=== PATIENT | female | born 2000 | race Caucasian/White ===

== ENCOUNTER → 2020-11-04 13:58 | Outpatient (BNVA) | payer MEDICAID, SELFPAY | PROVIDERS: Visit Provider Nurse Practitioner Women's Health | DX: Z34.01 Encounter for supervision of normal first pregnancy, first trimester (principal) | CPT/HCPCS: 81000 ==

== ENCOUNTER → 2020-11-25 12:33 | Outpatient (BNVA) | payer MEDICAID, SELFPAY | PROVIDERS: Visit Provider Obstetrics & Gynecology | DX: O99.331 Smoking (tobacco) complicating pregnancy, first trimester; F17.210 Nicotine dependence, cigarettes, uncomplicated; O99.321 Drug use complicating pregnancy, first trimester; F12.920 Cannabis use, unspecified with intoxication, uncomplicated; Z3A.11 11 weeks gestation of pregnancy | CPT/HCPCS: 80307; 81000; 85027; 86592; 86762; 86803; 86850; 86900; 87086; 87340; 87806 ==

== ENCOUNTER → 2021-01-04 08:50 | Outpatient (BNVA) | payer MEDICAID, SELFPAY | PROVIDERS: Visit Provider Nurse Practitioner Women's Health | DX: O99.321 Drug use complicating pregnancy, first trimester (principal); R76.8 Other specified abnormal immunological findings in serum; O99.331 Smoking (tobacco) complicating pregnancy, first trimester | CPT/HCPCS: 81000; 87522 ==

== ENCOUNTER → 2021-01-24 09:08 | Outpatient (BNVA) | payer MEDICAID, SELFPAY | PROVIDERS: Visit Provider Obstetrics & Gynecology | DX: Z34.92 Encounter for supervision of normal pregnancy, unspecified, second trimester (principal) | CPT/HCPCS: 76805 ==

== ENCOUNTER → 2021-01-27 11:08 | Outpatient (BNVA) | payer MEDICAID, SELFPAY | PROVIDERS: Visit Provider Obstetrics & Gynecology | DX: O99.322 Drug use complicating pregnancy, second trimester (principal); O28.3 Abnormal ultrasonic finding on antenatal screening of mother; F12.90 Cannabis use, unspecified, uncomplicated; O99.332 Smoking (tobacco) complicating pregnancy, second trimester; F17.210 Nicotine dependence, cigarettes, uncomplicated; Z3A.20 20 weeks gestation of pregnancy | CPT/HCPCS: 81000 ==

== ENCOUNTER → 2021-02-21 14:03 | Outpatient (BNVA) | payer MEDICAID, SELFPAY | PROVIDERS: Visit Provider Obstetrics & Gynecology | DX: O28.3 Abnormal ultrasonic finding on antenatal screening of mother (principal) | CPT/HCPCS: 81000 ==

== ENCOUNTER → 2021-03-21 11:25 | Outpatient (BNVA) | payer MEDICAID, SELFPAY | PROVIDERS: Visit Provider Obstetrics & Gynecology | DX: O28.3 Abnormal ultrasonic finding on antenatal screening of mother (principal) | CPT/HCPCS: 81000; 82950; 85027 ==

== ENCOUNTER → 2021-04-04 09:30 | Outpatient (BNVA) | payer MEDICAID, SELFPAY | PROVIDERS: Visit Provider Obstetrics & Gynecology | DX: Z34.80 Encounter for supervision of other normal pregnancy, unspecified trimester (principal) | CPT/HCPCS: 81000 ==

== ENCOUNTER → 2021-04-18 08:17 | Outpatient (BNVA) | payer MEDICAID, SELFPAY | PROVIDERS: Visit Provider Obstetrics & Gynecology | DX: Z34.80 Encounter for supervision of other normal pregnancy, unspecified trimester (principal) | CPT/HCPCS: 81000 ==

== ENCOUNTER → 2021-05-02 10:28 | Outpatient (BNVA) | payer MEDICAID, SELFPAY | PROVIDERS: Visit Provider Obstetrics & Gynecology | DX: O09.893 Supervision of other high risk pregnancies, third trimester (principal) | CPT/HCPCS: 81000 ==

== ENCOUNTER → 2021-05-16 08:54 | Outpatient (BNVA) | payer MEDICAID, SELFPAY | PROVIDERS: Visit Provider Obstetrics & Gynecology | DX: O09.893 Supervision of other high risk pregnancies, third trimester (principal) | CPT/HCPCS: 81000; 87081 ==

== ENCOUNTER → 2021-05-23 08:44 | Outpatient (BNVA) | payer MEDICAID, SELFPAY | PROVIDERS: Visit Provider Obstetrics & Gynecology | DX: O09.893 Supervision of other high risk pregnancies, third trimester (principal) | CPT/HCPCS: 81000 ==

== ENCOUNTER → 2021-05-31 09:15 | Outpatient (BNVA) | payer MEDICAID, SELFPAY | PROVIDERS: Visit Provider Obstetrics & Gynecology | DX: O09.893 Supervision of other high risk pregnancies, third trimester (principal); Z3A.00 Weeks of gestation of pregnancy not specified | CPT/HCPCS: 81000 ==

== ENCOUNTER 2021-06-06 11:05 | Outpatient (CLI) | payer MEDICAID, SELFPAY ==
[2021-06-06 11:19] VITALS: BMI 29.2
[2021-06-06 11:24] VITALS: TEMP 37.1
[2021-06-06 11:25] VITALS: BP 125/75; PULSE 94
[2021-06-06 11:27] VITALS: RESP 16
== END 2021-06-06 13:37 | disposition home or self-care (01) ==
LOC: OPOB 11:10 → OBGYN 11:18
PROVIDERS: Visit Provider Obstetrics & Gynecology
DX: O26.899 Other specified pregnancy related conditions, unspecified trimester (principal); Z3A.00 Weeks of gestation of pregnancy not specified; R10.9 Unspecified abdominal pain
CPT/HCPCS: 59020; 81000; 87635; 99211

== ENCOUNTER → 2021-06-13 09:54 | Outpatient (BNVA) | payer MEDICAID, SELFPAY | PROVIDERS: Visit Provider Obstetrics & Gynecology | DX: O09.893 Supervision of other high risk pregnancies, third trimester (principal); Z20.822 Contact with and (suspected) exposure to COVID-19 | CPT/HCPCS: 81000; 87635 ==

== ENCOUNTER 2021-06-14 07:58 | Outpatient (CLI) | payer MEDICAID, SELFPAY ==
[2021-06-14 08:27] VITALS: BP 114/61; PULSE 80; TEMP 36.3
--- NOTE | 2021-06-14 08:29 | P.PCN_ITS ---
Procedure/Consent Procedure Narrative: NONSTRESS TEST: Place of test: [facility] – [place]-L&D Indication: 20-year-old 1 para 0 at 40 weeks and 3 days, abdominal pain/contractions, possible leaking of fluid Date and time of test: 06/14/2021 at 8:10 AM Baseline: 135 Variability: Moderate variability Accelerations: Accelerations present Decelerations: No decelerations Tocometry: Occasional contractions INTERPRETATION: NST reactive, continue kick counts
[2021-06-14 08:43] VITALS: BMI 29.0
[2021-06-14 08:58] VITALS: BP 107/57; PULSE 65
[2021-06-14 09:06] LABS: Nitrazine Paper, PH Negative
[2021-06-14 09:29] VITALS: BP 125/68; PULSE 79
[2021-06-14 09:57] VITALS: BP 108/57; PULSE 72
[2021-06-14 10:29] VITALS: BP 122/75; PULSE 91
== END 2021-06-14 10:40 | disposition home or self-care (01) ==
LOC: OPOB 08:04 → OBGYN 08:04
PROVIDERS: Visit Provider Obstetrics & Gynecology
DX: O26.893 Other specified pregnancy related conditions, third trimester (principal); Z3A.40 40 weeks gestation of pregnancy; R10.9 Unspecified abdominal pain; N89.8 Other specified noninflammatory disorders of vagina
CPT/HCPCS: 59025; 83986; 99211

== ENCOUNTER 2021-06-14 19:47 | Outpatient (CLI) | payer MEDICAID, SELFPAY ==
[2021-06-14 19:47] VITALS: BMI 43.9
[2021-06-14 19:57] VITALS: BP 115/65; PULSE 103; TEMP 36.7
[2021-06-14] MEDS: hyDROXYzine 25 mg Capsule 50 MG PO (20:32)
[2021-06-14 20:35] VITALS: BP 115/65; PULSE 103; RESP 16; TEMP 36.7
== END 2021-06-14 20:40 | disposition home or self-care (01) ==
LOC: OPOB 19:48 → OBGYN 19:49
PROVIDERS: Visit Provider Obstetrics & Gynecology
DX: O26.899 Other specified pregnancy related conditions, unspecified trimester (principal); Z3A.00 Weeks of gestation of pregnancy not specified; R10.9 Unspecified abdominal pain
CPT/HCPCS: 59025; 99211

== ENCOUNTER → 2022-09-26 14:00 | Outpatient (BNVA) | payer MEDICAID, SELFPAY | PROVIDERS: Visit Provider Nurse Practitioner Women's Health | DX: Z32.00 Encounter for pregnancy test, result unknown (principal); N92.6 Irregular menstruation, unspecified | CPT/HCPCS: 81025 ==

== ENCOUNTER → 2022-10-10 12:12 | Outpatient (BNVA) | payer MEDICAID, SELFPAY | PROVIDERS: Visit Provider Obstetrics & Gynecology | DX: Z36.87 Encounter for antenatal screening for uncertain dates (principal) | CPT/HCPCS: 76801 ==

== ENCOUNTER 2022-10-10 13:55 | Outpatient (CLI) | payer MEDICAID, SELFPAY | END 2022-10-10 13:56 | disposition home or self-care (01) | LOC: LAB 13:57 | PROVIDERS: Visit Provider Obstetrics & Gynecology | DX: Z34.90 Encounter for supervision of normal pregnancy, unspecified, unspecified trimester (principal) | CPT/HCPCS: 36415; 84702 ==

== ENCOUNTER 2022-10-18 11:25 | Outpatient (CLI) | payer MEDICAID, SELFPAY | END 2022-10-18 11:26 | disposition home or self-care (01) | LOC: LAB 11:29 | PROVIDERS: PCP Nurse Practitioner Family; Visit Provider Obstetrics & Gynecology | DX: O36.80X0 Pregnancy with inconclusive fetal viability, not applicable or unspecified (principal); Z3A.00 Weeks of gestation of pregnancy not specified | CPT/HCPCS: 76817; 84702 ==

== ENCOUNTER 2022-11-01 11:56 | Day surgery (SDC) | payer MEDICAID, SELFPAY ==
[2022-10-30 12:41] VITALS: BMI 19.1
[2022-11-01] VITALS (8 sets, daily range): BP systolic 99–129; BP diastolic 51–92; PULSE 75–116; RESP 16–129; TEMP 36.3–37; O2SAT 96–100
[2022-11-01 12:58] LABS: Basophils % 0.6 %; Eosinophils # 0.3 10^3/uL (0.0-0.8); Eosinophils % 4.8 %; Hematocrit 41.5 % (37.0-47.0); Hemoglobin 13.3 g/dL (11.5-15.3); Lymphocytes # 2.9 10^3/uL (0.8-4.8); Lymphocytes % 44.6 %; Mean Corpuscular Hemoglobin 28.4 pg (28.0-34.0); Mean Corpuscular Volume 88.5 fl (81-99); Mean Platelet Volume 10.5 fL (7.4-10.4); Monocytes # 0.4 10^3/uL (0.2-0.9); Monocytes % 5.5 %; Neutrophils # 2.89 10^3/uL (1.8-7.7); Neutrophils % 44.3 %; Nucleated Red Blood Cells % 0 %; Platelet Count 269 10^3/cmm (130-400); Red Blood Count 4.69 10^6/uL (4.1-5.3); Red Cell Distribution Width 14.1 % (12.1-15.1); White Blood Count 6.5 10^3/uL (4.0-10.0)
[2022-11-01 13:14] LABS: Anion Gap 14.1 (5-19); Blood Urea Nitrogen 5 mg/dL (6-20); Calcium 9.5 mg/dL (8.5-10.5); Carbon Dioxide 23 mmol/L (22-29); Chloride 105 mmol/L (98-107); Glomerular Filtration Rate 154.3 mL/min (90-130); Glucose 96 mg/dL (65-115); Osmolality Calculated 283 mOsm/kg (285-295); Potassium 4.1 mmol/L (3.5-5.1); Sodium 138 mmol/L (136-145)
[2022-11-01] MEDS: sodium chloride 0.9% 1,000 ML 30 ML IV (13:16)
[2022-11-01] MEDS: lactated ringers 500 ML IV (13:45)
--- NOTE | 2022-11-01 13:50 | ANES.PREANE2 ---
Pre-Anesthetic Assessment Height/Weight: Height 1.5 m Weight 43.091 kg Temp Pulse Resp BP Pulse Ox O2 Del Method 98.6 F 75 129 H 129/87 97 11/01/22 12:18 11/01/22 12:18 11/01/22 12:18 11/01/22 12:18 11/01/22 12:18 11/01/22 12:18 Preop Diagnosis: Molar Operation Date: 11/01/22 14:05 Proposed Procedures p Dilation and curettage with suction 11113 O02.0(Not Applicable) - Adriano Sun MD Familial anesthetic complications: none Was Beta Chauncey taken within 24 hours: N/A Was Clonidine taken within 24 hours: N/A Last intake: Intake Last Liquid Date 10/31/22 Last Liquid Time 00:00 Last Solid Date 10/31/22 Last Solid Time 19:00 Social Tobacco and No alcohol Exam alert, oriented x 3, clear to auscultation bilaterally and regular rate & rhythm Airway Submandibular: within normal limits Cervical ROM: within normal limits Mallampati: Class II Dentition: full Neuropsych Anxiety and Depression Anesthetic Plan ASA status: 2 Anesthesia: General Medications/Allergies Home Medications Medication Instructions Recorded Confirmed Last Taken Type No Known Home Medications 10/30/22 10/30/22 Unknown History Allergies Allergy/AdvReac Type Severity Reaction Status Date / Time No Known Allergies Allergy Verified 10/30/22 12:39 Current Medications Generic Name Dose Route Start Last Admin Trade Name Freq PRN Reason Stop Dose Admin Sodium Chloride 1,000 mls @ 30 mls/hr 11/01/22 12:15 11/01/22 13:16 Sodium Chloride 0.9% IV 11/02/22 12:14 30 mls/hr .Q24H BANDAR Administration Lactated Ringer's 500 mls @ 500 mls/hr 11/01/22 13:31 11/01/22 13:45 Lactated Ringers IV 11/01/22 14:30 500 mls/hr .Q1H ONE Administration PFSH Anesthesia Medical History (Updated 11/01/22 @ 06:51 by Adriano Sun MD) Anxiety and depression No pertinent past medical history neghx: htn,dm,thyroid,dvt/pe PCP: Magaly Carpenter [employer] Surgical History Hx of tonsillectomy (~2009) Family History Grandmother Breast cancer Maternal--dx age 50's Ovarian cancer Maternal-- dx age 50's Uterine cancer Maternal Mother Ovarian cancer dx age late 20's Grandfather Heart disease maternal Denies family history of Colon cancer Diabetes Hyperlipidemia Hypertension Stroke Female Reproductive History Date of last menstrual period: 08/02/22 Data Anesthesia 11/01/22 12:40 11/01/22 12:40 Short CBC 11/01/22 Range/Units 12:40 WBC 6.5 (4.0-10.0) 10^3/uL Hgb 13.3 (11.5-15.3) g/dL Hct 41.5 (37.0-47.0) % MCV 88.5 (81-99) fl Plt Count 269 (130-400) 10^3/cmm Neut % (Auto) 44.3 % Neut # (Auto) 2.89 (1.8-7.7) 10^3/uL BMP 11/01/22 12:40 Sodium 138 Potassium 4.1 Chloride 105 Carbon Dioxide 23 BUN 5 L Creatinine 0.5 Glucose 96 Calcium 9.5 Cardiac Studies: No Data to Display
--- NOTE | 2022-11-01 14:00 | W.PM.OPSUD ---
Surgery/Procedure H&P Update DATE OF PROCEDURE: November 01, 2022 DATE H&P PERFORMED: 10/30/22 H&P UPDATE INFORMATION: I have reviewed H&P completed within last 30 days, I have examined patient prior to procedure and No changes to prior documentation PREOP DIAGNOSIS: Molar PLANNED PROCEDURE: Operation Date: 11/01/22 14:05 Proposed Procedures p Dilation and curettage with suction 18901 O02.0(Not Applicable) - Adriano Sun MD
[2022-11-01] MEDS: ceFAZolin 2,000 MG in sodium chloride 0.9% (plus) 50 ML 100 MG IV (15:22)
--- NOTE | 2022-11-01 15:54 | P.OP_ITS ---
Operative Report Date of procedure: November 01, 2022 Pre-op diagnosis: Preop Diagnosis Molar Post-op diagnosis: Same as above Procedure done: Suction dilation and curettage Specimens removed/disposition: Molar Surgeon: Adriano Sun MD Estimated blood loss (mL): 10 IV fluids (mL): 500 Complications: None Procedure: After informed consent, the patient was taken to the Operating Room where g eneral anesthesia was administered. The patient was examined under anesthesia and found to have a normal uterus with normal adnexa. She was placed in the dorsal lithotomy position and prepped and draped in sterile fashion. A sterile weighted speculum was placed in the patient?s vagina. A single-tooth tenaculum was then applied to the cervix. The uterus was then gently sounded to 8 cm and a suction curette was advanced gently to the uterine fundus and product of conception emptied. A sharp curettage was then performed until a gritty texture was noted. There was minimal bleeding noted and the tenaculum was removed with good hemostasis noted. The patient tolerated the procedure well. The patient was taken to the recovery area in stable condition.
--- NOTE | 2022-11-02 08:49 | ANE.PACU2 ---
Inpatient post-anesthesia follow up: Airway intact: Yes Vital signs: Temperature 98 F Pulse Rate 90 Respiratory Rate 17 Blood Pressure 129/61 Pulse Oximetry 97 Oxygen Delivery Me thod Room Air Oxygen Flow Rate 6 Fraction of Inspir ed Oxygen Hydration adequate: Yes Nausea and vomiting: No Pain level: 2 Mental status: Baseline
== END 2022-11-01 17:00 | disposition home or self-care (01) ==
PROVIDERS: PCP Nurse Practitioner Family; Visit Provider Obstetrics & Gynecology
PROC: (CPT 59820; principal; 2022-11-01 13:55)
DX: O02.0 Blighted ovum and nonhydatidiform mole (principal)
CPT/HCPCS: 59820; 36415; 80048; 81229; 85025; 88305; J0690; J1100; J1885; J2250; J2405; J2704; J3010; J3490; J7030; J7120

== ENCOUNTER 2022-11-14 12:23 | Outpatient (CLI) | payer MEDICAID, SELFPAY ==
[2022-11-14 13:44] LABS: HCG Quantitative 1.48 mIU/mL
== END 2022-11-14 12:24 | disposition home or self-care (01) ==
LOC: LAB 12:27
PROVIDERS: PCP Nurse Practitioner Family; Visit Provider Nurse Practitioner Women's Health
DX: O02.0 Blighted ovum and nonhydatidiform mole (principal)
CPT/HCPCS: 84702

== ENCOUNTER 2022-11-21 12:38 | Outpatient (CLI) | payer MEDICAID, SELFPAY | END 2022-11-21 12:39 | disposition home or self-care (01) | LOC: LAB 12:41 | PROVIDERS: Nurse Practitioner Women's Health; PCP Nurse Practitioner Family; Visit Provider Obstetrics & Gynecology | DX: Z48.816 Encounter for surgical aftercare following surgery on the genitourinary system (principal) | CPT/HCPCS: 36415; 84702 ==

== ENCOUNTER → 2022-12-12 12:30 | Outpatient (BNVA) | payer MEDICAID, SELFPAY | PROVIDERS: PCP Nurse Practitioner Family; Visit Provider Obstetrics & Gynecology | DX: Z48.816 Encounter for surgical aftercare following surgery on the genitourinary system (principal); Z30.40 Encounter for surveillance of contraceptives, unspecified | CPT/HCPCS: 81025 ==